=== PATIENT | female | born 1965 | race African-American/Black ===

== ENCOUNTER 2022-01-24 15:20 | Emergency (ER) | payer OTHER ==
[2022-01-24] MEDS ORDERED: IBUPROFEN 400 MG TABLET (FP) PO ONE ×2 (15:37→16:10)
[2022-01-24 15:56] VITALS: BP 142/90; PULSE 74; RESP 16; TEMP 97.8; BMI 32.8
== END 2022-01-24 17:33 | disposition home or self-care (01) ==
LOC: FER 15:20
DX: S99.912A Unspecified injury of left ankle, initial encounter (principal); W20.8XXA Other cause of strike by thrown, projected or falling object, initial encounter
CPT/HCPCS: 73630-TC-RT-FY; 99283-25

== ENCOUNTER 2024-12-06 06:14 | Day surgery (SDC) | payer OTHER ==
[2024-12-02 14:20] VITALS: BMI 33.6
[2024-12-06] MEDS ORDERED: BUPIVACAINE HCL/PF 0.5% (5MG/ML) 10 ML VIAL ONE ×2 (07:46→09:03)
[2024-12-06] MEDS ORDERED: BUPIVACAINE HCL/PF 0.25% (2.5MG/ML) 10 ML VIAL ONE (07:46)
[2024-12-06] MEDS ORDERED: ONDANSETRON 4 MG/2 ML VIAL ONE (08:12)
[2024-12-06] MEDS ORDERED: DEXAMETHASONE SOD PHOSPHATE 4 MG/1 ML VIAL ONE (08:12)
[2024-12-06] MEDS ORDERED: ROCURONIUM BROMIDE 50 MG/5 ML SYRINGE ONE ×2 (08:13→09:44)
[2024-12-06] MEDS ORDERED: MIDAZOLAM HCL 2 MG/2 ML SINGLE DOSE VIAL ONE (08:13)
[2024-12-06] MEDS ORDERED: PROPOFOL 20 ML ONE (08:13)
[2024-12-06] MEDS ORDERED: ONDANSETRON 4 MG/2 ML VIAL IVPUSH PRN (08:41)
[2024-12-06] MEDS: BUPIVACAINE HCL/PF 0.5% (5 MG/ML) 30 ML VIAL IJ ONE ×2 (09:17)
[2024-12-06] MEDS ORDERED: SUGAMMADEX SODIUM 200 MG/2 ML VIAL ONE (09:46)
[2024-12-06] MEDS ORDERED: KETOROLAC TROMETHAMINE 30 MG/1 ML VIAL ONE (09:46)
[2024-12-06] MEDS: LACTATED RINGERS SOLUTION 1,000 ML IV SCH (10:22)
[2024-12-06 12:27] VITALS: RESP 16
[2024-12-06 14:28] VITALS: BP 123/78; PULSE 73; TEMP 97.7
== END 2024-12-06 14:45 | disposition home or self-care (01) ==
LOC: JASU-SURG 06:14
PROVIDERS: ATTEND Surgery
PROC: 0FT44ZZ Resection of Gallbladder, Percutaneous Endoscopic Approach (ICD-10-PCS; principal; 2024-12-06 13:00)
DX: K80.10 Calculus of gallbladder with chronic cholecystitis without obstruction (principal)
CPT/HCPCS: 88304-TC; 94760